=== PATIENT | male | born 1955 | race Asian ===

== ENCOUNTER 2021-03-28 00:07 | Inpatient (IN) | payer OTHER ==
[~2021-03-28] VITALS: Ht 172.7 cm; Wt 74.8 kg
--- NOTE | 2021-03-28 00:40 | NUR ---
PATIENT WAITING OUTSIDE WITH PRIVATE AMBULANCE FOR BED OPENING IN THE ER.
--- NOTE | 2021-03-28 01:40 | NUR ---
PATIENT PLACED IN ROOM 5A.
[2021-03-28] MEDS ORDERED: ONDANSETRON 4 MG/2 ML VIAL IV ONE (02:00)
[2021-03-28] MEDS ORDERED: IV NORMAL SALINE 1000 ML BAG IV ONE (02:00)
[2021-03-28] MEDS ORDERED: HYDROMORPHONE 1 MG/1 ML DISP.SYRIN IV ONE (02:00)
[2021-03-28] MEDS ORDERED: ATOR10TA PO (02:30)
[2021-03-28] MEDS ORDERED: LACT10SO7 PO (02:30)
[2021-03-28 03:00] LABS: MEAN CORPUSCULAR HEMOGLOBIN 27.8 uug (23.8-33.4); MEAN CORPUSCULAR VOLUME 83.3 fL (73.0-96.2); PLATELET COUNT (AUTO) 92 K/uL (152-348)
[2021-03-28] MEDS ORDERED: ONDANSETRON 4 MG/2 ML VIAL ONE (03:03)
[2021-03-28] MEDS ORDERED: HYDROMORPHONE 2 MG/1 ML DISP.SYRIN ONE (03:03)
[2021-03-28 03:05] LABS: *CLARITY,URINE CLEAR (CLEAR); *COLOR,URINE YELLOW (YELLOW)
[2021-03-28 03:06] LABS: *BILIRUBIN,URIN SMALL (NEGATIVE); *BLOOD, URINE SMALL (NEGATIVE); UGLUCOSE NEGATIVE (NEGATIVE)
[2021-03-28 03:07] LABS: *KETONES,URINE SMALL (NEGATIVE); LEUKOCYTE ESTERASE ,URINE NEGATIVE (NEGATIVE); NITRITE, URINE NEGATIVE (NEGATIVE)
[2021-03-28 03:08] LABS: CREATININE 1.1 mg/dL (0.6-1.3); POTASSIUM 3.7 mmol/L (3.5-5.1)
[2021-03-28 03:09] LABS: BILIRUBIN,DIRECT 0.2 mg/dL (0.0-0.2); BILIRUBIN,TOTAL 0.6 mg/dL (0.2-1.0); TOTAL PROTEIN, SERUM 7.1 g/dL (6.4-8.2)
[2021-03-28 03:12] LABS: MAGNESIUM 2.1 mg/dL (1.8-2.4)
[2021-03-28 03:16] LABS: BACTERIA,URINE FEW /HPF (NONE SEEN); RBC,URINE 0-3 /HPF (0-3); SQUAMOUS EPITHELIAL CELL,UR FEW /HPF (NONE SEEN); WBC,URINE 0-3 /HPF (0-3)
--- NOTE | 2021-03-28 03:40 | NUR ---
Pt placed on monitor and inital VS obtained. VSS, PE WNL besides moderate to severe abd pain. Pt states he has a severe OVALLE. 128/73, 825bpm, 18rpm, 95% 5LNC. Pt is AAOX4 with good color and appearance. IV started, 1L NS bolus initiated, Pain meds given, pt immediately calmed down and relaxed. Pt is resting comfortably now, no more complaints of pain, dozing off to sleep with audible snoring. Pt awaiting biological lab technician to transport to CT, consent already signed.
[2021-03-28] MEDS ORDERED: SWABABLE VALVE TRANSFER SET EA MC ONE (03:50)
[2021-03-28] MEDS ORDERED: IV NORMAL SALINE 250 ML IV ONE (03:51)
[2021-03-28] MEDS ORDERED: IOHEXOL 300MG/ML 100 ML INFUS..BTL ONE (03:51)
--- NOTE | 2021-03-28 04:05 | NUR ---
Pt currently in CT for diagnositc exam CT abd with contrast.
[2021-03-28] MEDS ORDERED: DEXAMETHASONE SOD PHOSPHATE 4 MG INJ IV ONE (04:45)
--- NOTE | 2021-03-28 05:05 | NUR ---
Pt back from CT. Pt sleeping soundly with audible snoring. Pt appears to be in deep sleep. Pt was complaining about not having had any good sleep for many days and was complaining about being sleep deprived.
[2021-03-28] MEDS: CHOLECALCIFEROL 1,000 UNIT TABLET PO SCH (05:06)
[2021-03-28] MEDS ORDERED: DEXAMETHASONE SOD PHOSPHATE 4 MG INJ ONE (05:07)
[2021-03-28] MEDS: CEFTRIAXONE 1 G in IV DEXTROSE 5% 50 ML IV SCH ×3 (05:44→07:52)
[2021-03-28] MEDS ORDERED: Z GUARD REMEDY PASTE 57 GM TUBE TOP PRN (05:45)
[2021-03-28] MEDS ORDERED: ONDANSETRON 4 MG/2 ML VIAL IV PRN (05:45)
[2021-03-28] MEDS ORDERED: ACETAMINOPHEN 325 MG TABLET PO PRN (05:45)
[2021-03-28] MEDS ORDERED: CEFTRIAXONE /D5W 50ML IVPB **ER PYXIS IV ONE (05:57)
[2021-03-28] MEDS ORDERED: CHOLECALCIFEROL 1,000 UNIT TABLET ONE (05:58)
[2021-03-28] MEDS ORDERED: DEXAMETHASONE SOD PHOSPHATE 4 MG INJ IV SCH (09:00)
--- NOTE | 2021-03-28 09:55 | NUR ---
Pt given breakfast tray of crump and eggs with frisian toast and oat meal with one cup of apple juice. Pt set up to eat breakfast.
[2021-03-28] MEDS: ENOXAPARIN SODIUM 40 MG/0.4 ML DISP.SYRIN SQ SCH (13:10)
[2021-03-28] MEDS ORDERED: ENOXAPARIN SODIUM 40 MG/0.4 ML DISP.SYRIN SQ ONE (13:16)
[2021-03-28] MEDS ORDERED: DEXAMETHASONE SOD PHOSPHATE 10 MG INJ ONE ×2 (13:17→16:49)
--- NOTE | 2021-03-28 13:45 | NUR ---
Assumed care for pt. Received pt resting in gurney and watching TV. No s/s of acute distress noted. Pt has been admitted to tele and waiting in the ER for a bed to be available.
--- NOTE | 2021-03-28 16:30 | NUR ---
Room 318 on tele floor assigned by nursing stranding supervisor, pt to be trans after change of shift. Pt is resting with his eyes closed with NAD noted at this time.
[2021-03-28] MEDS: DEXAMETHASONE SOD PHOSPHATE 4 MG INJ IV SCH ×2 (16:39→17:00)
--- NOTE | 2021-03-28 18:10 | NUR ---
in to see pt.
--- NOTE | 2021-03-28 20:44 | NUR ---
Arrived via wheelchair, able to transport from wheelchair to bed. Alert and oriented to name, place and time. On 4L NC saturating at 97%. BP 118/61, temp 97.6, HR 59 R 18. IV in R AC intact and patent. Able to state needs. No signs of acute distress noted. No SOB presented. Call lights within reach, safety measures initiated.
[2021-03-28 22:08] VITALS: BP 118/61
[2021-03-28] MEDS: MAGNESIUM HYDROXIDE 30 ML LIQUID UDC PO PRN (23:39)
[2021-03-29 00:32] VITALS: BP 111/55
[2021-03-29] MEDS: IV NS 1000 ML 1,000 ML IV PRN (01:16)
[2021-03-29 04:22] VITALS: BP 118/73
--- NOTE | 2021-03-29 05:38 | NUR ---
Slept throughout the night. On 4L NC saturating at 96%. Sinus Santiago with R BBB on tele monitor. No signs of acute distress. IV in R AC intact and running NS at 60 mls/hr. Needs have been met. Isolation precautions implemented. Admission packet completed. Call lights within reach, safety measures maintained. Will endorse to am shift.
[2021-03-29 06:09] LABS: ABG BASE EXCESS -0.6 mmol/L; ABG HCO3 22.1 mmol/L; ABG PCO2 31.2 mmHg (35.0-45.0); ABG PH 7.469 (7.350-7.450); ABG PO2 82.2 mmHg (75.0-100.0); ABG SITE RIGHT RADIAL; ABG TOTAL HEMOGLOBIN 14.2 G/dL (13.5-18.0); COHb 0.6 % (0.5-1.5); MetHb 0.3 % (0.0-1.5); O2Hb 96.2 % (94.0-97.0); VENT MODE Nasal Cannula
[2021-03-29 06:39] LABS: MEAN CORPUSCULAR HEMOGLOBIN 27.5 uug (23.8-33.4); MEAN CORPUSCULAR VOLUME 82.5 fL (73.0-96.2); PLATELET COUNT (AUTO) 115 K/uL (152-348)
[2021-03-29 07:06] LABS: CREATININE 0.8 mg/dL (0.6-1.3); MAGNESIUM 2.3 mg/dL (1.8-2.4); PHOSPHOROUS 2.8 mg/dL (2.5-4.9); POTASSIUM 4.4 mmol/L (3.5-5.1)
--- NOTE | 2021-03-29 07:50 | NUR ---
Received patient report from police shift commander nurse, Suzan RN. Arrived to patient resting comfortably win bed with no signs of distress or discomfort. Patient currently receiving 4L of oxygen via Nasal Canula and saturating at 98%. IV site intact and patent. Will continue to monitor patient throughout shift.
[2021-03-29 08:09] LABS: ALANINE AMINOTRANSFERASE 34 U/L (16-63); ASPARTATE AMINOTRANSFERASE 47 U/L (15-37)
[2021-03-29] MEDS: DEXAMETHASONE SOD PHOSPHATE 4 MG INJ IV SCH ×2 (09:44→20:47)
[2021-03-29] MEDS: CHOLECALCIFEROL 1,000 UNIT TABLET PO SCH (09:45)
[2021-03-29] MEDS: ENOXAPARIN SODIUM 40 MG/0.4 ML DISP.SYRIN SQ SCH (09:52)
[2021-03-29] MEDS ORDERED: ATOR40TA PO (10:50)
[2021-03-29] MEDS ORDERED: REMDESIVIR (CHARGED) 200 MG in IV NORMAL SALINE 210 ML IV ONE (11:00)
[2021-03-29] MEDS ORDERED: LACT10SO7 PO (11:01)
[2021-03-29] MEDS ORDERED: DOCU-141 PO (11:02)
[2021-03-29] MEDS ORDERED: TAMS-3 PO (11:14)
[2021-03-29] MEDS ORDERED: FINA5TAB3 PO (11:15)
[2021-03-29 11:24] VITALS: BP 94/59
[2021-03-29 15:31] VITALS: BP 103/67
--- NOTE | 2021-03-29 18:48 | NUR ---
Patient currently resting in bed comfortably with no signs of distress or discomfort. Patient is currently receiving 4L of Oxygen via Nasal Canula and saturating at 95%. Patient is able to ambulate with moderate assistance. Dose 1 of Remdesivir started today. Will endorse to the production shift supervisor nurse. IV site intact with bed left in lowest position with call light within reach.
[2021-03-29] MEDS: MAGNESIUM HYDROXIDE 30 ML LIQUID UDC PO PRN (23:19)
--- NOTE | 2021-03-30 00:22 | NUR ---
Received pt on bed with no respiratory distress noted, on O2 at 4LPM via NC saturating at 96%. He is alert and oriented x4, able to make needs known., BRP with assistance. IV line on RAC noted to be infiltrated. Reinserted on R hand G#22 with ongoing NS 1L running at 60 ml/hr. MOM given d/t complaint of constipation. All needs attended. Call light placed within reach. Will continue to monitor.
[2021-03-30] MEDS: CEFTRIAXONE 1 G in IV DEXTROSE 5% 50 ML IV SCH (05:03)
--- NOTE | 2021-03-30 06:18 | NUR ---
Pt slept throughout the night, on O2 at 4LPM via NC saturating at 93-96%. He is alert and oriented x4, able to make needs known., BRP with assistance. NSR on tele with R bundle branch block. IV site on R hand G#22 still patent and intact with ongoing NS 1L running at 60 ml/hr. Due IV meds given on time time and tolerated well. All needs attended. Call light placed within reach. Frequent visual checks done. Will endorse to next shift.
[2021-03-30 07:04] LABS: HEMATOCRIT 37.7 % (36.7-47.1); MEAN CORPUSCULAR HEMOGLOBIN 27.7 uug (23.8-33.4); MEAN CORPUSCULAR VOLUME 81.8 fL (73.0-96.2); PLATELET COUNT (AUTO) 133 K/uL (152-348)
[2021-03-30 07:42] LABS: BILIRUBIN,DIRECT 0.1 mg/dL (0.0-0.2); BILIRUBIN,TOTAL 0.3 mg/dL (0.2-1.0); CREATININE 0.9 mg/dL (0.6-1.3); MAGNESIUM 2.3 mg/dL (1.8-2.4); PHOSPHOROUS 3.1 mg/dL (2.5-4.9); POTASSIUM 3.8 mmol/L (3.5-5.1); TOTAL PROTEIN, SERUM 5.8 g/dL (6.4-8.2)
--- NOTE | 2021-03-30 08:10 | NUR ---
Received patient report from nightclub manager nurse. Patient resting comfortably in bed with no signs of distress or discomfort. Patient is AOx4, currently receiving 4L of Oxygen saturating at 97%. 2nd dose of Remdesivir to begin today. IV site intact and patent. Bed left in lowest position with call light within reach. Will continue to monitor patient throughout shift.
[2021-03-30] MEDS: DEXAMETHASONE SOD PHOSPHATE 4 MG INJ IV SCH ×2 (08:31→20:51)
[2021-03-30] MEDS: CHOLECALCIFEROL 1,000 UNIT TABLET PO SCH (08:32)
[2021-03-30] MEDS: ENOXAPARIN SODIUM 40 MG/0.4 ML DISP.SYRIN SQ SCH (08:33)
[2021-03-30 10:58] VITALS: BP 91/46
[2021-03-30] MEDS: REMDESIVIR (CHARGED) 100 MG in IV NORMAL SALINE 100 ML IV SCH (11:32)
[2021-03-30] MEDS ORDERED: DOCUSATE SODIUM 100 MG CAPSULE PO PRN (11:45)
[2021-03-30 16:10] VITALS: BP 107/71
--- NOTE | 2021-03-30 16:20 | NUR ---
Clinical Social Work Note SW consult was requested for homelessness. Patient is a 65 year old male who is alert and oriented x3. Patient presented with a withdrawn mood and flat affect. Patient was unclear about how he got to [facility]. SW inquired about patients housing needs. Patient stated that he has been living in a half-way called [facility] in [place]. Patient stated he did not recall the address at this moment. SW found the address of half-way, [address] [place] [id number] . Patient accepted homeless packet but stated that upon discharge he would like to return to his previous half-way and he will be in need of transportation. SW contacted [facility] and spoke with housing navigator Kate [phone] who stated that patient would need to go to their access center between the hours of 8AM to 4:30 PM to complete an intake. Plan: SW will have patient sign homeless waiver upon discharge.
--- NOTE | 2021-03-30 18:44 | NUR ---
Patient currently stable receiving no oxygen. Patient is currently saturating at 94% on room air with no apparent distress or discomfort. IV site intact and patent. Bed left in lowest position with call light within reach. Will endorse to night shift supervisor nurse.
[2021-03-30] MEDS: ATORVASTATIN 40 MG TABLET PO SCH (20:51)
[2021-03-30] MEDS: TAMSULOSIN HCL 0.4 MG CAP.SR.24H PO SCH (20:52)
[2021-03-30] MEDS: IV NS 1000 ML 1,000 ML IV PRN (20:52)
[2021-03-30 21:08] VITALS: BP 113/49
[2021-03-31 00:47] VITALS: BP 106/64
[2021-03-31 04:35] VITALS: BP 107/49
--- NOTE | 2021-03-31 06:00 | NUR ---
Patient is sitting up in bed. AAO x 4, able to make needs known. On 2L 02 via NC, denies any SOB. Noted to have moist productive cough. Still c/o discomfort to med left abd. ABD is soft and non distended, no rebound tenderness. States he is not constipated. Remains on COVID isolation. Safety measures initiated. Call light within reach.
[2021-03-31] MEDS: CEFTRIAXONE 1 G in IV DEXTROSE 5% 50 ML IV SCH (06:23)
[2021-03-31] MEDS: FINASTERIDE 5 MG TABLET PO SCH (08:12)
[2021-03-31] MEDS: CHOLECALCIFEROL 1,000 UNIT TABLET PO SCH (08:12)
[2021-03-31] MEDS: DEXAMETHASONE SOD PHOSPHATE 4 MG INJ IV SCH ×2 (08:12→21:06)
[2021-03-31] MEDS: ENOXAPARIN SODIUM 40 MG/0.4 ML DISP.SYRIN SQ SCH (08:13)
[2021-03-31] MEDS: MAGNESIUM HYDROXIDE 30 ML LIQUID UDC PO PRN (08:41)
[2021-03-31 08:46] LABS: HEMATOCRIT 41.7 % (36.7-47.1); MEAN CORPUSCULAR HEMOGLOBIN 27.4 uug (23.8-33.4); PLATELET COUNT (AUTO) 161 K/uL (152-348)
[2021-03-31 09:55] LABS: BILIRUBIN,DIRECT 0.2 mg/dL (0.0-0.2); BILIRUBIN,TOTAL 0.5 mg/dL (0.2-1.0); CREATININE 0.8 mg/dL (0.6-1.3); MAGNESIUM 2.3 mg/dL (1.8-2.4); PHOSPHOROUS 3.7 mg/dL (2.5-4.9)
--- NOTE | 2021-03-31 10:10 | NUR ---
Received report from warehouse supervisor 3rd shift nurse, Vicki COTTER. Arrived to patients room in distress due to lack of hot water in bedroom. Patient was provided with hot water upon request and has calmed down. Patient is now sitting in bed complaining of no bowel movement. Milk of Magnesia and Prune juice provided. Patient saturating at 91% on room air. Will provide 2L of Oxygen and monitor saturation.
--- NOTE | 2021-03-31 10:26 | NUR ---
Clementine Ray notified me to begin oxygen therapy at 1L of Oxygen and then monitor patients saturation.
[2021-03-31] MEDS: REMDESIVIR (CHARGED) 100 MG in IV NORMAL SALINE 100 ML IV SCH (11:02)
[2021-03-31 12:42] VITALS: BP 91/61
[2021-03-31] MEDS: IV NS 1000 ML 1,000 ML IV PRN (16:16)
[2021-03-31 17:13] VITALS: BP 91/58
--- NOTE | 2021-03-31 18:11 | NUR ---
Patient is resting comfortably in bed with no signs of distress or discomfort. Patient was given milk of magnesia and prune juice to help alleviate constipation. Interventions successful. IV site intact and patent currently running normal saline at 60cc/hr. Bed left in lowest position with call light within reach. Remdesivir completed. Will endorse to shift superintendent nurse.
--- NOTE | 2021-03-31 19:30 | NUR ---
Patient is sitting up in bed in high fowlers position. AAO x 4, able to make needs known. Denies any pain or discomfort. On 1L 02 via NC, denies any SOB. Noted to have moist productive cough. Remains on COVID isolation. IV is patent and intact to right FA, Infusing NS at 60 cc/hr. Safety measures initiated. Call light within reach.
[2021-03-31] MEDS: TAMSULOSIN HCL 0.4 MG CAP.SR.24H PO SCH (21:06)
[2021-03-31] MEDS: ATORVASTATIN 40 MG TABLET PO SCH (21:06)
[2021-03-31 22:01] VITALS: BP 108/60
[2021-04-01 00:39] VITALS: BP 122/76
[2021-04-01 05:33] VITALS: BP 112/64
--- NOTE | 2021-04-01 05:49 | NUR ---
Patient slept well this shift. No c/o pain. Noted with occasional dry cough. On 1L 02 via NC, 02 sats 93. On telemetry, NSR with bundle branch block. No significant events noted. Call light within reach. COVID isolation continued. Call light within reach.
[2021-04-01] MEDS: CEFTRIAXONE 1 G in IV DEXTROSE 5% 50 ML IV SCH (06:23)
--- NOTE | 2021-04-01 07:30 | NUR ---
Received this morning awake ambulating from the bathroom. No sob noted. SR on tele. Assisted back to his wc. On 1 Lpm nc tolerated o2 sat noted 93%. Denies sob or pain. IV intact and hydration ongoing. Safety measures kept. Cont to monitor
[2021-04-01 08:27] LABS: MEAN CORPUSCULAR HEMOGLOBIN 27.8 uug (23.8-33.4); MEAN CORPUSCULAR VOLUME 82.7 fL (73.0-96.2); PLATELET COUNT (AUTO) 181 K/uL (152-348)
[2021-04-01 08:32] LABS: BILIRUBIN,DIRECT 0.2 mg/dL (0.0-0.2); BILIRUBIN,TOTAL 0.7 mg/dL (0.2-1.0); CREATININE 0.8 mg/dL (0.6-1.3); MAGNESIUM 2.5 mg/dL (1.8-2.4); PHOSPHOROUS 3.1 mg/dL (2.5-4.9); POTASSIUM 3.9 mmol/L (3.5-5.1); TOTAL PROTEIN, SERUM 6.2 g/dL (6.4-8.2)
[2021-04-01] MEDS: CHOLECALCIFEROL 1,000 UNIT TABLET PO SCH (08:53)
[2021-04-01] MEDS: FINASTERIDE 5 MG TABLET PO SCH (08:53)
[2021-04-01] MEDS: DEXAMETHASONE SOD PHOSPHATE 4 MG INJ IV SCH ×2 (08:53→20:30)
[2021-04-01] MEDS: ENOXAPARIN SODIUM 40 MG/0.4 ML DISP.SYRIN SQ SCH (09:05)
[2021-04-01] MEDS: LACTULOSE 20 G/30 ML LIQUID UDC PO PRN ×2 (09:43→20:38)
[2021-04-01] MEDS: IV NS 1000 ML 1,000 ML IV PRN (09:45)
--- NOTE | 2021-04-01 10:48 | NUR ---
dr. min rounding and updated on medical condition
[2021-04-01] MEDS: REMDESIVIR (CHARGED) 100 MG in IV NORMAL SALINE 100 ML IV SCH (11:25)
--- NOTE | 2021-04-01 11:30 | NUR ---
noted with slight sob while ambulating from the bathroom o2 sat 89-90%. increased o2 to 2 lpm and o2 sat went up to 93-94%. cont to monitor
[2021-04-01 12:00] VITALS: BP 98/71
--- NOTE | 2021-04-01 12:00 | NUR ---
REMDESIVIR GIVEN ORDERED. NO ALLERGIC/ADVERSE REACTIONS NOTED.
[2021-04-01 16:00] VITALS: BP 137/64
[2021-04-01] MEDS ORDERED: BISACODYL 10 MG SUPP.RECT RC ONE (17:45)
--- NOTE | 2021-04-01 18:49 | NUR ---
sr on tele hr 58-65 bpm. no acute distress. o2 at 2 lpm tolerated o2 sat 94%. given suppository per request and encouraged increase of fluids and stated understanding. needs attended. safety precautions kept. cont to monitor.
--- NOTE | 2021-04-01 19:39 | NUR ---
Patient AAO x 4, able to make needs known. On 2L 02 via NC, denies any SOB. Still noted to have occasional moist productive cough. Remains on COVID isolation. IV is patent and intact to right FA, Infusing NS at 60 cc/hr. ABD is soft and non distended, no tenderness. Safety measures initiated. Call light within reach.
[2021-04-01] MEDS: TAMSULOSIN HCL 0.4 MG CAP.SR.24H PO SCH (20:30)
[2021-04-01] MEDS: ATORVASTATIN 40 MG TABLET PO SCH (20:30)
[2021-04-01 20:46] VITALS: BP 132/69
[2021-04-02 00:57] VITALS: BP 120/56
[2021-04-02] MEDS: IV NS 1000 ML 1,000 ML IV PRN (04:16)
[2021-04-02 04:30] VITALS: BP 125/65
--- NOTE | 2021-04-02 05:52 | NUR ---
Slept well this shift. AAO x4, no c/o pain. On 2L O2 via NC, No SOB. Occasional moist cough noted. On telemetry, NSR, HR 62 BPM. Had one medium BM this shift. Noted with hiccups, intermittently over the night. No significant events noted. COVID isolation continued. Call light within reach
[2021-04-02 06:53] LABS: HEMATOCRIT 38.1 % (36.7-47.1); MEAN CORPUSCULAR HEMOGLOBIN 27.7 uug (23.8-33.4); MEAN CORPUSCULAR VOLUME 82.4 fL (73.0-96.2); PLATELET COUNT (AUTO) 178 K/uL (152-348)
[2021-04-02 07:24] LABS: BILIRUBIN,DIRECT 0.2 mg/dL (0.0-0.2); BILIRUBIN,TOTAL 0.6 mg/dL (0.2-1.0); CREATININE 0.8 mg/dL (0.6-1.3); MAGNESIUM 2.1 mg/dL (1.8-2.4); PHOSPHOROUS 3.4 mg/dL (2.5-4.9); TOTAL PROTEIN, SERUM 5.2 g/dL (6.4-8.2)
--- NOTE | 2021-04-02 08:00 | NUR ---
received in bed awake and oriented x3 no sob noted. had nasal cannula off on room air o2 sat noted 90%. put on 2 lpm nasal cannula o2 sat increased to 92-93%. reported he had a bm x1. no complaints at this time. kept comfortable. safety measures in place. call light in reach.
--- NOTE | 2021-04-02 09:00 | NUR ---
exchange specialist madhu rounding and updated on condition. no new orders received.
[2021-04-02] MEDS: CHOLECALCIFEROL 1,000 UNIT TABLET PO SCH (09:01)
[2021-04-02] MEDS: DEXAMETHASONE SOD PHOSPHATE 4 MG INJ IV SCH ×2 (09:05→20:40)
[2021-04-02] MEDS: FINASTERIDE 5 MG TABLET PO SCH (09:05)
[2021-04-02] MEDS: GLUCERNA SHAKE VANILLA 237 ML CAN PO SCH (09:07)
[2021-04-02] MEDS: ENOXAPARIN SODIUM 40 MG/0.4 ML DISP.SYRIN SQ SCH (09:19)
--- NOTE | 2021-04-02 11:00 | NUR ---
dr. min [place] and updated on condition. no new orders received.
[2021-04-02] MEDS: REMDESIVIR (CHARGED) 100 MG in IV NORMAL SALINE 100 ML IV SCH (11:03)
[2021-04-02 12:00] VITALS: BP 94/56
--- NOTE | 2021-04-02 12:00 | NUR ---
REMDESIVIR GIVEN ORDERED. NO ALLERGIC/ADVERSE REACTIONS NOTED.
--- NOTE | 2021-04-02 15:28 | NUR ---
Clinical Social Work Note (SL) ANGE spoke with Elsi [phone] with [facility] to arrange for patients admission the [facility] upon discharge. Elsi stated that there is a waitlist and ANGE would receive a call back today or tomorrow morning. ANGE provided cell phone number ([phone]) and Nursing station ([phone]) as call back numbers. [place] [phone]. Plan: ANGE will follow up with [facility].
[2021-04-02 16:00] VITALS: BP 102/55
--- NOTE | 2021-04-02 17:59 | NUR ---
SR ON TELEMONITOR HR 59. REMAINS ON 2 LPM NASAL CANNULA O2 SAT 93-94%. NO EPISODE OF SOB. DENIES PAIN.
[2021-04-02 20:18] VITALS: BP 115/49
[2021-04-02] MEDS: ATORVASTATIN 40 MG TABLET PO SCH (20:39)
[2021-04-02] MEDS: TAMSULOSIN HCL 0.4 MG CAP.SR.24H PO SCH (20:40)
[2021-04-02] MEDS: MAGNESIUM HYDROXIDE 30 ML LIQUID UDC PO PRN (20:52)
[2021-04-03] VITALS: BP 113/53
[2021-04-03] MEDS: IV NS 1000 ML 1,000 ML IV PRN ×2 (01:27→17:01)
[2021-04-03 04:21] VITALS: BP 144/60
--- NOTE | 2021-04-03 06:04 | NUR ---
Patient AAO x4, Slept well throughout the night .Continue On 2L O2 via NC, No SOB. NSR on Tele. No significant events noted. COVID isolation continued. Afebrile .VSS .All needs anticipated and met accordingly.Call light within reach.
[2021-04-03 06:59] LABS: HEMATOCRIT 36.8 % (36.7-47.1); MEAN CORPUSCULAR HEMOGLOBIN 27.5 uug (23.8-33.4); MEAN CORPUSCULAR VOLUME 81.8 fL (73.0-96.2); PLATELET COUNT (AUTO) 186 K/uL (152-348)
[2021-04-03 07:13] LABS: CREATININE 0.7 mg/dL (0.6-1.3); MAGNESIUM 2.1 mg/dL (1.8-2.4); PHOSPHOROUS 3.4 mg/dL (2.5-4.9); POTASSIUM 3.9 mmol/L (3.5-5.1)
--- NOTE | 2021-04-03 07:50 | NUR ---
Received in bed covers over his head verbalized he slept well. On 2 lpm nc o2 sat 93%. No resp distress noted. Denies pain. SB-SR on tele. Safety measures maintained. Kept comfortable. Will cont to monitor.
[2021-04-03] MEDS: DEXAMETHASONE SOD PHOSPHATE 4 MG INJ IV SCH (09:26)
[2021-04-03] MEDS: GLUCERNA SHAKE VANILLA 237 ML CAN PO SCH (09:26)
[2021-04-03] MEDS: FINASTERIDE 5 MG TABLET PO SCH (09:26)
[2021-04-03] MEDS: CHOLECALCIFEROL 1,000 UNIT TABLET PO SCH (09:26)
[2021-04-03] MEDS: ENOXAPARIN SODIUM 40 MG/0.4 ML DISP.SYRIN SQ SCH (09:28)
[2021-04-03 12:00] VITALS: BP 110/57
--- NOTE | 2021-04-03 15:09 | NUR ---
Clinical Social Work Note ANGE spoke with Audra from the [facility] of Public Health ([phone]) and provided patient information to complete referral for [facility]. ANGE provided two call back numbers, ANGE work phone ([phone]) and Nursing station ([phone]). Audra stated that ANGE should expect a call by this evening or tomorrow. Plan: ANGE will continue to follow up with Audra for pending acceptance to [facility].
[2021-04-03 16:00] VITALS: BP 112/55
[2021-04-03] MEDS: LACTULOSE 20 G/30 ML LIQUID UDC PO PRN (17:01)
--- NOTE | 2021-04-03 18:33 | NUR ---
REMAINS ON 2LPM NC TOLERATING O2 SAT 92%. NO SOB/PAIN NOTED. SB-SR ON TELEMONITOR. NEEDS ATTENDED. PAMELA MIDLINE INSERTED AND PATENT.
--- NOTE | 2021-04-03 20:00 | NUR ---
Received patient lying in bed. AAOx4. In no apparent distress. Stating right IV site itchy. Wanting it remove. Remove IV on right FA and patient felt immediate relief. Patient have a midline on right upper arm intact and patent. Denies any pain or SOB. O2 sat at 92% with O2 at 2LPM via NC in place. No coughing noted. Patient stated he feels like he still needing O2, Will keep O2 for now. Needs assessed and attended to. COVID precaution observed. Safety measure initiated and call light within reached.
--- NOTE | 2021-04-03 20:01 | NUR ---
Patient sinus joann with BBB on tele with HR of 59/min.
[2021-04-03] MEDS: TAMSULOSIN HCL 0.4 MG CAP.SR.24H PO SCH (20:06)
[2021-04-03] MEDS: ATORVASTATIN 40 MG TABLET PO SCH (20:06)
[2021-04-03 20:53] VITALS: BP 127/69
[2021-04-04 00:18] VITALS: BP 133/67
[2021-04-04 04:15] VITALS: BP 104/61
--- NOTE | 2021-04-04 06:20 | NUR ---
Slept well last night. In no acute distress. Miidline on right upper arm intact and patent. IVF infusing. No complain of pain or SOB. O2 sat at 93% with O2 at 2LPM via NC in place. No coughing noted. Sinus joann with BBB on tele with HR of 53/min. Needs assessed and attended to. COVID precaution maintained. Safety measure maintained and call light within reached.
--- NOTE | 2021-04-04 07:40 | NUR ---
Received patient report from PM nurse, Ana Luisa COTTER. Arrived to patient's room resting comfortably in bed with no signs of distress or discomfort. Patient receiving 1L of oxygen via nasal canula saturating at 97%. Will endorse to doctor to ween off oxygen. Patient may be discharged today, pending on availability of rooms for Covid patients at a [facility]. IV site intact and patent. Bed left in lowest position with call light within reach.
[2021-04-04 07:48] LABS: HEMATOCRIT 38.5 % (36.7-47.1); MEAN CORPUSCULAR HEMOGLOBIN 27.7 uug (23.8-33.4); MEAN CORPUSCULAR VOLUME 81.9 fL (73.0-96.2); PLATELET COUNT (AUTO) 198 K/uL (152-348)
[2021-04-04 08:05] LABS: CREATININE 0.7 mg/dL (0.6-1.3); MAGNESIUM 1.8 mg/dL (1.8-2.4); PHOSPHOROUS 2.9 mg/dL (2.5-4.9); POTASSIUM 3.4 mmol/L (3.5-5.1)
[2021-04-04] MEDS: CHOLECALCIFEROL 1,000 UNIT TABLET PO SCH (08:57)
[2021-04-04] MEDS: FINASTERIDE 5 MG TABLET PO SCH (08:57)
[2021-04-04] MEDS: ENOXAPARIN SODIUM 40 MG/0.4 ML DISP.SYRIN SQ SCH (08:58)
[2021-04-04] MEDS ORDERED: DEXAMETHASONE SOD PHOSPHATE 4 MG INJ IV SCH (09:00)
[2021-04-04] MEDS: GLUCERNA SHAKE VANILLA 237 ML CAN PO SCH (09:01)
--- NOTE | 2021-04-04 10:18 | NUR ---
Patient on room air. Patient currently saturating at 95%.
[2021-04-04 11:59] VITALS: BP 118/65
[2021-04-04] MEDS: LACTULOSE 20 G/30 ML LIQUID UDC PO PRN (13:28)
--- NOTE | 2021-04-04 13:47 | NUR ---
Clinical Social Work Note ANGE spoke with Ana Luisa from the Department of Public Health ([phone]) and provided an update on patient's medical record. ANGE informed Ana Luisa that she will be sending PT evaluation. Ana Luisa shared that once it is received she will call ANGE to provide an update on placement. Plan: ANGE will continue to follow up with Ana Luisa for pending acceptance to [facility].
--- NOTE | 2021-04-04 14:17 | NUR ---
Patient has been on room air since 1014. Patient is saturating well at 94-95%
[2021-04-04 16:01] VITALS: BP 101/72
--- NOTE | 2021-04-04 16:46 | NUR ---
Clinical Social Work Note SW provided patient with additional homeless detention list in his area of preference which is [place]. Additionally, director of social services provided patient with written instructions on how he can get the [place] station. Patient stated that he knows how to take the train back to [place] and his detention. There is a copy of resources given to patient in his chart.
== END 2021-04-04 17:58 | disposition home or self-care (01) | DRG 137 ==
LOC: ER 00:16 → TELE3 05:37
PROVIDERS: ADMIT Registered Nurse; ATTEND Nurse Practitioner Family
PROC: XW033E5 Introduction of Remdesivir Anti-infective into Peripheral Vein, Percutaneous Approach, New Technology Group 5 (ICD-10-PCS; principal; 2021-03-29)
PROC: 05H533Z Insertion of Infusion Device into Right Subclavian Vein, Percutaneous Approach (ICD-10-PCS; 2021-04-03)
PROC: B546ZZA Ultrasonography of Right Subclavian Vein, Guidance (ICD-10-PCS; 2021-04-03)
DX: U07.1 COVID-19 (principal); J96.01 Acute respiratory failure with hypoxia; J12.82 Pneumonia due to coronavirus disease 2019; N40.0 Benign prostatic hyperplasia without lower urinary tract symptoms; E78.5 Hyperlipidemia, unspecified; J15.9 Unspecified bacterial pneumonia; K59.00 Constipation, unspecified; R10.9 Unspecified abdominal pain
CPT/HCPCS: 36415; 36600; 70030-TC; 71045; 83605; 83615; 83690; 83735; 84100; 84450; 84460; 85025; 85610; 85730; 86140; 87040; 93005; 97161; A4663; G0378; J0696; J1100; J1170; J1650; J2405; J3490; J7030; J7050; J7060; Q9967